=== PATIENT | female | born 2000 | race Caucasian/White ===

== ENCOUNTER 2025-06-07 17:10 | Emergency (ER) | payer OTHER, SELFPAY ==
--- NOTE | ~2025-06-07 | XR_ITS ---
CLINICAL HISTORY: SOB Chest X-ray, 1 View COMPARISON: None provided FINDINGS: No consolidation. No pleural effusion. No pneumothorax. No cardiomegaly. No acute fracture. IMPRESSION: No acute findings. This document has been electronically signed by: Siva Nunes MD on 06/07/2025 19:16:29
[2025-06-07 17:26] VITALS: BP 120/76; PULSE 102; TEMP 36.7; O2SAT 99; BMI 27.6
--- NOTE | 2025-06-07 17:32 | ECG_ITS ---
Test Reason : sob Blood Pressure : */* mmHG Vent. Rate : 105 BPM Atrial Rate : 105 BPM P-R Int : 120 ms QRS Dur : 80 ms QT Int : 340 ms P-R-T Axes : 57 69 39 degrees QTcB Int : 449 ms Sinus tachycardia Otherwise normal ECG No previous ECGs available Referred By: Nikolas Downing Electronically Signed By: TALIA WALLS MD
--- NOTE | 2025-06-07 17:32 | ED_ITS ---
HPI - General Adult General Chief complaint: Dyspnea Stated complaint: R/O puolmonary embolism Time Seen by Provider: 06/07/25 20:01 Source: patient Mode of arrival: ambulatory Limitations: no limitations History of Present Illness ED Provider: Marleen Blount PA-C HPI narrative: This is a 24 year old person assigned female at with a history of childhood asthma that presents for evaluation of shortness of breath. She reports that symptoms have been present for 5 days. She feels as though she is not getting enough air when she tries to fill her lungs. She states that she reported to urgent care around 4 pm and they gave her an asthma treatment. She said she is unsure if it offered her any relief. She feels dizzy with forced inhale. She denies any URI symptoms such as fever, cough, or nasal congestion. She denies any leg pain or swelling. She denies any recent travel, illness, or prolonged sitting. She denies any chest pain or palpitations. She denies any personal history of bleeding or clotting disorders. She denies taking any medications and is not currently on any oral control. She endorses marijuana use that she has decreased since her shortness of breath has started. She reports a family history of her mother having a PE at age 45. Related Data Previous Rx's ?Medication ?Instructions ?Recorded albuterol sulfate 90 mcg/actuation 1 inh inhalation QI D PRN shortness 06/07/25 aerosol inhaler of breath or wheezing #8.5 g felisha prednisone 20 mg tablet 40 mg (2 x 20 mg) PO DAILY C OPD 06/07/25 exacerbation 5 days #10 tabs Allergies Allergy/AdvReac Type Severity Reaction Status Date / Time No Known Allergies (No Known Allergy Verified 06/07/25 17:28 Allergies*) Review of Systems 2 Constitutional: Constitutional: Reports as per HPI Eyes: Eyes: Reports as per HPI ENT: Reports as per HPI Cardiovascular: Cardiovascular: Reports as per HPI Respiratory: Respiratory: Reports as per HPI Gastrointestinal: Gastrointestinal: Reports as per HPI Genitourinary: Genitourinary: Reports as per HPI Musculoskeletal: Musculoskeletal: Reports as per HPI Integumentary/Breasts: Skin/Breast: Reports as per HPI Neurologic: Reports as per HPI Psychiatric: Psychiatric: Reports as per HPI Endocrine: Endocrine: Reports as per HPI Hematologic/Lymphatic: Hematologic/Lymphatic: Reports as per HPI Allergic/Immunologic: Allergic/Immunologic: Reports as per HPI [facility] Past Medical History Attestation statement: The following information was validated with the patient. Source: old records reviewed and nursing notes reviewed Social History Social History Smoked in Last 30 Days: No Use of substances other than those prescribed or required for medical reasons: Yes Substance Use Type: Marijuana Advance Directives: No Advance Directives Information Provided: Yes Patient : No Physical Exam ED Vital Signs: Vital Signs - 24 hr 06/07/25 17:26 06/07/25 19:51 06/07/25 20:39 Temperature 98.1 F 98.4 F 98.4 F Pulse Rate 102 H 89 89 Respiratory Rate 16 16 Blood Pressure 120/76 114/70 114/70 Pulse Oximetry 99 100 100 Oxygen Delivery Method Room Air Room Air Room Air BMI result Body Mass Index 27.6 Const General: cooperative, no acute distress, alert and awake Nutritional Appearance: well nourished Orientation/consciousness: patient oriented x3 HENMT Head: Yes normal to inspection and Yes atraumatic Ears: hearing grossly normal bilaterally and external ears normal General nose exam: Normal external nose present, no nasal discharge noted and no epistaxis Face and sinus: Yes normal facial exam, No abrasion and No laceration Mouth: no drooling and no muffled voice Eyes General: appearance normal, both eyes and all related structures Periorbital: periorbital findings normal Eyelids: Yes eyelids normal Conjunctivae: conjunctivae normal Pupils: Equal, round and reactive pupils present EOM: EOMs intact bilaterally Neck Neck: Yes normal visual inspection and Yes full ROM Resp Effort & Inspection: normal respiratory effort and able to speak in complete sentences Auscultation: clear to auscultation bilaterally Cardio Rate: regular rate Rhythm: regular rhythm Neuro General: patient oriented x3, moves all extremities and CN's II-XI intact bilaterally Cranial nerves: Yes Equal, round and reactive pupils present Cognition (Neuro): normal cognition Extrem General: Yes normal to inspection, Yes full ROM and Yes capillary refill normal Psych Appearance: grossly normal Mental Status: mental status grossly normal Affect: normal affect Attitude: cooperative Thought process: Normal thought process present Thought content: Normal thought content present Insight: Good insight present (Psych) Course Course Course Narrative: RME: 24-year-old female sent from urgent care to rule out pulmonary embolus. Patient states 5 days of pleurisy. Patient has strong family history of blood clots. Patient denies any chest pain, recent long travel or recent surgery. Labs EKG x-ray ordered Medical Decision Making Medical Decision Making [facility] Narrative: Patient is a 24 year old assigned female at with a history of asthma presenting to the emergency department with shortness of breath. Patient's physical exam was as noted in the physical exam portion of this note. Patient's blood work was unremarkable. Patient's EKG showed sinus tachycardia. This was obtained when she first arrived in the department and is likely secondary to her recent albuterol treatment from the Urgent Care. Patient's chest x-ray showed no acute process. I explained my physical exam findings as well as all test results to the patient. I answered all questions asked by the patient. Patient's d-dimer was negative however, the patient continued to have concern of the possibility of pulmonary embolism. We had an extensive conversation on imaging modalities to rule this out, including a CT PE protocol. Patient ultimately decided that given her phone battery was low, she had been here awhile already, and her d-dimer was negative - that she would rather discharge than have a CT PE study done. Patient's clinical presentation is most consistent with an asthma exacerbation vs. URI vs. reactive airway disease. I stressed the importance of the patient taking her medication as directed (either prescribed or as the over the counter packaging recommends). I stressed the importance of the patient following up with her primary care provider. I stressed the importance of the patient returning to the emergency department immediately if her symptoms were to worsen or if she were to develop any dizziness, shortness of breath, difficulty breathing, chest pain, blurry vision, loss of vision, nausea, vomiting, abdominal pain, fever, chills, back pain, or any other complaints. Patient verbalized agreement and understanding with this treatment plan and discharge. Differential Diagnosis Differential Diagnoses: The differential diagnosis associated with the presentation includes SOB PE URI Pneumonia Asthma exacerbation Admission/Observation Consideration of admission/observation: Escalation of care including admission/observation considered Patient would have been admitted to the hospital had her work up had any findings where hospital admission was appropriate and her clinical presentation warranted hospital admission. Lab Data [facility] Lab Attestation statement: I reviewed the patient's lab results. My interpretation of these results are in the [facility] Rationale portion of this note. 06/07/25 17:57 06/07/25 17:58 Labs: Lab Results 06/07/25 06/07/25 Range/Units 17:57 17:58 WBC 7.4 (4.8-10.8) X10*3/uL RBC 4.25 (4.20-5.50) X10*6/uL Hgb 11.1 L (12.0-16.0) g/dl Hct 34.6 L (37.0-47.0) % MCV 81.4 (80.0-98.0) fL MCH 26.1 L (27.0-33.0) pg MCHC 32.1 (31.0-35.0) g/dl RDW 15.8 (11.0-16.0) % Plt Count 434 H (160-400) X10*3/uL MPV 9.3 L (9.4-12.3) fL Immature Gran % (Auto) 0.3 (0.0-0.4) % Neut % (Auto) 67.1 (45-73) % Lymph % (Auto) 25.3 (20-40) % Daggett % (Auto) 6.2 (2-11) % Eos % (Auto) 0.7 (0-4) % Baso % (Auto) 0.4 (0-2) % Lymph # (Auto) 1.9 (1.2-4.9) X10*3/uL Daggett # (Auto) 0.5 (0.1-1.2) X10*3/uL Eos # (Auto) 0.1 (0.0-0.4) X10*3/uL Baso # (Auto) 0.0 (0.0-0.2) X10*3/uL Abs Immat Gran (auto) 0.02 (0.00-0.03) X10*3/uL Absolute Neuts (auto) 5.0 (2.0-8.3) x10*3/uL Absolute Nucleated RBC 0.000 (0.0-0.012) X10*3/uL Nucleated RBC % (auto) 0.0 (0.0-0.2) /100WBC PT 11.6 (10.9-12.4) SEC INR 1.0 (0.9-1.1) APTT 24.8 L (26.7-34.1) SEC D-Dimer High Sensitivty 167 NG/ML Sodium 140 (135-145) mmol/L Potassium 4.0 (3.3-5.1) mmol/L Chloride 109 H (96-108) mmol/L Carbon Dioxide 25 (22-29) mmol/L Anion Gap 10 L (12-20) BUN 6 L (9-16) mg/dL Creatinine 0.63 (0.5-1.4) mg/dL Estim Creat Clear Calc 114.2 Estimated GFR > 60 Random Glucose 108 (60-115) mg/dL Calcium 9.1 (8.4-10.2) mg/dL Total Bilirubin 0.2 (0.0-1.0) mg/dL AST 22 (5-31) U/L ALT 16 (0-31) U/L Alkaline Phosphatase 54 (39-117) U/L Troponin I High Sens < 2.7 (<3.5-17.0) ng/L NT-Pro-B Natriuret Pep 118.0 (<300) pg/mL Total Protein 7.2 (6.5-8.0) g/dL Albumin 4.5 (3.5-5.0) g/dL Independent Interpretation I performed an independent interpretation of an: EKG and Plain X-Ray Interpretation: My interpretation is in agreement with the radiologist's impression of this imaging study. L Reason for Exam: SOB CLINICAL HISTORY: SOB Chest X-ray, 1 View COMPARISON: None provided FINDINGS: No consolidation. No pleural effusion. No pneumothorax. No cardiomegaly. No acute fracture. IMPRESSION: No acute findings. This document has been electronically signed by: Siva Nunes MD on 06/07/2025 19:16:29 Dictated By: Siva Nunes MD Signed By: Electronically signed by Siva Nunes MD 06/07/25 1917 I independently interpreted this EKG and am in agreement with the below findings: Vent. Rate: 105 BPM Atrial Rate: 105 BPM P-R Int: 120 ms QRS Dur: 80 ms QT Int: 340 ms P-R-T Axes: 57 69 39 degrees QTcB Int: 449 ms Sinus tachycardia Otherwise normal ECG No previous ECGs available DD/ 1749 Radiology Impression Discussion of test interpretation with radiology: I have reviewed the radiologist's reading. Discharge Plan Discharge Clinical Impression: Asthma with exacerbation Patient Disposition: Home, Self-Care Instructions: Asthma (DC), How Your Lungs Work (ED) Additional Instructions: Your work up today showed no evidence of an EMERGENT cause for your symptoms. I am suspicious your childhood asthma is acting up. IF you are prescribed home medications and/or you are taking over the counter medications at home - it is very important you continue to do so as prescribed / directed unless told otherwise. Follow up with your primary care provider. Return to the emergency department immediately if your symptoms worsen or if you develop any numbness, tingling, dizziness, shortness of breath, difficulty breathing, chest pain, blurry vision, loss of vision, nausea, vomiting, abdominal pain, fever, chills, back pain, or any other complaints. Please see the information below about our Patient Portal. If you are not yet enrolled in the [facility] Patient Portal, you will receive an enrollment email invitation following your visit to any [facility] setting. You may also self-enroll in the Patient Portal by visiting our website: [email or web address] The following information is required to access the Patient Portal: - Your [facility] Medical Record Number - Your personal home email address (must match what is in your electronic medical record, Registration staff can assist with this) - Name - Date of Capabilities of the Patient Portal: - Message some providers - View upcoming appointments - Access your health summary, medical history, and visit history - View current conditions and allergies - View procedure and lab results - View your medications, including guidelines, side effects, and precautions - Complete pre-appointment questionnaires requested by your provider - Ready summary reports of your office visits and procedures To access the Patient Portal Mobile Br[employer], follow these directions: - Search [employer] in the Brisa Store or [employer] Play Store - Download the Brisa - Search for [facility] - Enter your login/password Prescriptions: New prednisone 20 mg tablet 40 mg PO DAILY 5 Days Qty: 10 0RF albuterol sulfate 90 mcg/actuation HFA aerosol inhaler 1 inh inhalation QID PRN (Reason: shortness of breath or wheezing) Qty: 8.5 0RF Referrals: Danyel Salgado MD [Primary Care Provider, Internal Medicine] Stand Alone Forms: Work/School Release Interventions: ED Discharge Assessment Last Done: 06/07/25 20:39 Discharge Date/Time: 06/07/25 20:40 Print Language: [place]
[2025-06-07 18:04] LABS: MANUAL DIFF FLAG NO
[2025-06-07 18:05] LABS: Hematocrit 34.6 % (37.0-47.0); Hemoglobin 11.1 g/dl (12.0-16.0); Imm Gran Abs Auto 0.02 X10*3/uL (0.00-0.03); Imm Gran Pct Auto 0.3 % (0.0-0.4); Lymphocytes Absolute Auto 1.9 X10*3/uL (1.2-4.9); Mean Corpuscular HGB Conc 32.1 g/dl (31.0-35.0); Mean Corpuscular Hemoglobin 26.1 pg (27.0-33.0); Mean Corpuscular Volume 81.4 fL (80.0-98.0); NRBC Abs Auto 0.000 X10*3/uL (0.0-0.012); NRBC Pct Auto 0.0 /100WBC (0.0-0.2); Platelet Count 434 X10*3/uL (160-400); Red Blood Count 4.25 X10*6/uL (4.20-5.50); White Blood Count 7.4 X10*3/uL (4.8-10.8)
[2025-06-07 18:10] LABS: INTERNATIONAL NORM RATIO 1.0 (0.9-1.1); Prothrombin Time 11.6 SEC (10.9-12.4)
[2025-06-07 18:13] LABS: Partial Thromboplastin Time 24.8 SEC (26.7-34.1)
[2025-06-07 18:23] LABS: Alanine Aminotransferase 16 U/L (0-31); Albumin Level 4.5 g/dL (3.5-5.0); Alkaline Phosphatase 54 U/L (39-117); Anion Gap 10 (12-20); Aspartate Amino Transferase 22 U/L (5-31); Blood Urea Nitrogen 6 mg/dL (9-16); Calcium 9.1 mg/dL (8.4-10.2); Carbon Dioxide 25 mmol/L (22-29); Chloride 109 mmol/L (96-108); Creatinine Clr Calc Pharmacy 114.2; Estimated Glomerular Filt Rate > 60; Potassium 4.0 mmol/L (3.3-5.1); Sodium 140 mmol/L (135-145); Total Protein 7.2 g/dL (6.5-8.0)
[2025-06-07 18:30] LABS: NT Pro B Type Natriuretic Pept 118.0 pg/mL (<300)
[2025-06-07 18:32] LABS: Troponin-I High Sensitivity < 2.7 ng/L (<3.5-17.0)
--- OUTSIDE RECORDS SUMMARY | 2025-06-07 18:39 | XMS_ITS | Clinical Summary ---
Author Organization [facility] Address [address] [place] [address] Care Team Providers Care Before And After School Daycare Worker Name Role Phone Carina Drummond MD Primary Care Provider [phone] Allergies No known active allergies Medications No known medications Active Problems Problem Noted Date Diagnosed Date Family history of DVT 11/14/2020 Overview: Mom from saddle PE age 45. 10/2020 Materal grandfather from PE age 49 Cousin with h/o DVT age 24 Dysmenorrhea 11/14/2020 Asthma 07/21/2018 Social History Tobacco Use Types Packs/Day Years Used Date Smoking Tobacco: Never Smokeless Tobacco: Never Alcohol Use Standard Drinks/Week Comments Never 0 (1 standard drink = 0.6 oz pur e alcohol) Sex and Gender Information Value Date Recorded Sex Assigned at Not on file Gender Identity Not on file Sexual Orientation Not on file Last Filed Vital Signs Vital Sign Reading Time Taken Comments Blood Pressure 109/64 02/08/2021 2:42 PM EDT Pulse 95 02/08/2021 2:42 PM EDT Temperature 36.2 C (97.1 F) 02/08/2021 2:42 PM EDT Respiratory Rate - - Oxygen Saturation 99% 02/08/2021 2:42 PM EDT Inhaled Oxygen Concentration - - Weight 63.9 kg (140 lb 12.8 oz) 02/08/2021 2:42 PM EDT Height 152.4 cm (5') 02/08/2021 2:42 PM EDT Body Mass Index 27.5 02/08/2021 2:42 PM EDT Plan of Treatment Health Maintenance Due Date Last Done Comments Hepatitis B Vaccines (1 of 3 - 3-dose series) 1999 Hepatitis C Screening 1999 COVID-19 Vaccine (#1) 01/14/2000 Depression Screening 2011 Gonorrhea and Chlamydia Screening 2012 Preventative Health Evaluation 2017 Cervical Cancer Screening (Pap Smear) 2020 DTap / Tdap / Td (7 - Td or Tdap) 08/02/2021 08/02/2011, 04/17/2005, 11/07/2000, Additional history exists Influenza Vaccine (#1) 2025 05/26/2018 Pneumococcal Vaccine Completed 11/07/2000, 08/01/2000, 05/30/2000 RSV Ped < 20 months Aged Out No longe r eligible based on patient's age to complete this topic Care Teams Before And After School Daycare Worker Relationship Specialty Start Date End Date Carina Drummond MD PCP - General Internal Medicine 01/13/21
--- OUTSIDE RECORDS SUMMARY | 2025-06-07 18:39 | XMS_ITS | Clinical Summary ---
Author Organization [facility] Address [address] [place] [address] Care Team Providers Care Supervisor [employer] Name Role Phone Danyel Salgado MD Primary Care Provider Allergies Active Allergy Reactions Criticality Noted Date Comments Other 05/26/2018 Seasonal Allergies Medications doxycycline (MONODOX) 100 mg capsule Take 1 capsule (100 mg total) by mouth 2 (two) times a day. 7 days 11/30/2024 Active Surgical History Surgery Date Site/Laterality Comments OTHER SURGICAL HISTORY PROCEDURE: DENIES PREVIOUS SURGERY Medical History Medical History Date Comments Asthma 07/21/2018 DX:Asthma Family history of DVT DX:Family history of DVT Family history of pulmonary embolism DX:Family history of pulmonary embolism Asthma DX:Asthma Dysmenorrhea DX:Dysmenorrhea Seasonal allergies DX:Seasonal a llergies Family History Medical History Relation Name Comments Other: Other Father alive and well Other: Pulmonary Embolism Mother Relation Name Status Comments Father Mother Social History Tobacco Use Types Packs/Day Years Used Date Smoking Tobacco: Never Smokeless Tobacco: Never Tobacco Cessation:Counseling Given: Not Answered Alcohol Use Standard Drinks/Week Comments Never 0 (1 standard drink = 0.6 oz pur e alcohol) Housing Instability Answer Date Recorde d Are you worried that in the next 2 months you may not have stable housing? No 12/04/2024 Food Access & Nutrition Answer Date Rec orded Do you have access to a vari ety of food including fruits and vegetables? Yes 12/04/2024 Access to Healthcare Answer Date Record ed Within the last 3 months, ho w many times did you visit the emergency department for your medical care? 0 12/04/2024 Health Literacy Answer Date Recorded How often do you need to hav e someone help you when you read instructions, pamphlets, or other written material from your doctor or pharmacy? Never 12/04/2024 Caregiver: How often do you need to have someone help you when you read instructions, pamphlets, or other written material from your doctor or pharmacy? Not on file 12/04/2024 Financial Risk Answer Date Recorded How hard is it for you to pa y for the very basics like food, housing, medical care, and air conditioning / heating? Not very hard 12/04/2024 Transportation Answer Date Recorded Has the lack of transportati on kept you from meetings, work, or from getting things needed for daily living? No Has the lack of transportati on kept you from medical appointments or from getting medications? No 12/04/2024 Social Isolation Answer Date Recorded How often do you feel lonely or isolated from th ose around you? Never 12/04/2024 Food Risk Answer Date Recorded Within the past 12 months we worried whether our food would run out before we got money to buy more. Never true 12/04/2024 Within the past 12 months th e food we bought just didn't last and we didn't have money to get more. Never true 12/04/2024 Dependent Care Answer Date Recorded Do you need help finding or paying for care for your loved ones. For example, child care specialist or elderly care for an older adult? No 12/04/2024 Education Answer Date Recorded Do you think completing more education or training, like finishing a GED, going to college, or learning a trade, would be helpful for you? No 12/04/2024 Employment and Income Answer Date Recor ded During the last four weeks, have you been actively looking for work? No 12/04/2024 Living Situation Answer Date Recorded What is your living situation? Unrecognized valu e 12/04/2024 Comments No Sex and Gender Information Value Date Recorded Sex Assigned at Not on file Legal Sex Female 1:57 AM EST Gender Identity Not on file Sexual Orientation Not on file Obstetrics History Last Filed Vital Signs Vital Sign Reading Time Taken Comments Blood Pressure 110/59 12/04/2024 10:31 AM EDT Pulse 87 12/04/2024 10:31 AM EDT Temperature 37.6 C (99.7 F) 12/04/2024 10:31 AM EDT Respiratory Rate 16 12/04/2024 10:31 AM EDT Oxygen Saturation 99% 12/04/2024 10:31 AM EDT Inhaled Oxygen Concentration - - Weight 66.7 kg (147 lb) 12/04/2024 10:31 AM EDT Height 152.4 cm (5') 12/04/2024 10:31 AM EDT Body Mass Index 28.71 12/04/2024 10:31 AM EDT Plan of Treatment Health Maintenance Due Date Last Done Comments Pneumococcal Vaccine: Pediatrics (0 to 5 Years) and At-Risk Patients (6 to 49 Years) (1 of 1 - PPSV23, PCV20, or PCV21) 2005 11/07/2000, 08/01/2000, 05/30/2000 Cervical Cancer Screening: Pap Smear 2020 DTaP,Tdap,and Td Vaccines (7 - Td or Tdap) 08/02/2021 08/02/2011, 04/17/2005, 11/07/2000, Additional history exists HIV Screening 12/04/2024 Hepatitis C Screening 12/04/2024 COVID-19 Vaccine ( - season) 2025 Influenza Vaccine (#1) 2025 05/26/2018 Social Influencers of Health Screening 12/04/2025 12/04/2024 RSV Immunization Adult Patients (1 - 1-dose 75+ series) 2074 Hepatitis B Vaccines Completed 01/16/2000, 1999, 1999 HIB Vaccines Completed 11/07/2000, 12/31, 1999, Additional history exists MMR Vaccines Completed 09/24/2003, 08/01/2000 IPV Vaccines Completed 04/17/2005, 04/2001, 05/30/2000, Additional history exists Varicella Vaccines Completed 08/02/2011, 08/01/2000 HPV Vaccines Completed 03/09/2015, 10/27/2013 Meningococcal ACWY Vaccine Completed 06/10/2018, Depression Screening Completed 12/04/2024 Hepatitis A Vaccines Aged Out No long er eligible based on patient's age to complete this topic Meningococcal B Vaccine Aged Out No l onger eligible based on patient's age to complete this topic RSV Immunization Patients Under 20 months Aged Out No longer eligible based on patient's age to complete this topic Insurance [facility] Care Teams Supervisor [employer] Relationship Specialty Start Date End Date Danyel Salgado MD [address] [place] [address] PCP - General Internal Medicine 12/03/24
[2025-06-07 19:23] LABS: D Dimer High Sensitivity 167 NG/ML
[2025-06-07 19:51] VITALS: BP 114/70; PULSE 89; RESP 16; TEMP 36.9; O2SAT 100
[2025-06-07 20:39] VITALS: BP 114/70; PULSE 89; RESP 16; TEMP 36.9; O2SAT 100
== END 2025-06-07 20:40 | disposition home or self-care (01) ==
PROVIDERS: Physician Assistant; Emergency Provider Student in an Organized Health Care Education/Training Program; PCP Internal Medicine
DX: J45.901 Unspecified asthma with (acute) exacerbation (principal); R06.02 Shortness of breath; R42 Dizziness and giddiness
CPT/HCPCS: 36415; 71045; 80053; 83880; 84484; 85025; 85379; 85610; 85730; 93005; 99284

== ENCOUNTER → 2025-06-07 17:32 | Outpatient (BNV) | payer OTHER, SELFPAY | PROVIDERS: Emergency Provider Student in an Organized Health Care Education/Training Program; PCP Internal Medicine; Visit Provider Internal Medicine Cardiovascular Disease | DX: R00.0 Tachycardia, unspecified (principal) | CPT/HCPCS: 93010 ==

== ENCOUNTER → 2025-06-07 17:33 | Outpatient (BNV) | payer OTHER, SELFPAY | PROVIDERS: PCP Internal Medicine; Visit Provider Radiology Diagnostic Radiology | DX: R06.02 Shortness of breath (principal) | CPT/HCPCS: 71045 ==